=== PATIENT | female | born 2000 | race Caucasian/White ===

== ENCOUNTER 2018-08-29 18:15 | Emergency (ER) | payer SELFPAY ==
[~2018-08-29] VITALS: Wt 65.2 kg
[2018-08-29] MEDS ORDERED: IBUPROFEN 600 MG TAB PO ONE (19:00)
--- NOTE | 2018-08-29 20:23 | ERD ---
ER Documentation Chief Complaint Chief Complaint LEFT SHOULDER PAIN, POSSIBLE DISLOCATION HPI This is a 18-year-old female with no significant past medical history who is presenting with left shoulder pain while performing heavy lifting at work. The patient reportedly was trying to move a cart from side to side when she felt a popping sensation in her shoulder. The patient feels a bump to the shoulder and feels that it does not look the same as her right shoulder. The patient is able to range her shoulder, but it is difficult secondary to pain. She has no weakness or numbness or tingling to the left arm otherwise. Her arm is not cold or pale or cyanotic. Her pulses are intact. The patient denies feeling sick recently. The patient denies fever or chills. The patient has had no headache or vision changes. The patient does not endorse neck or back pain. The patient denies lightheadedness or dizziness. The patient has had no chest pain or trouble breathing. The patient denies nausea or vomiting. The patient denies abdominal pain. The patient denies changes to bowel movements or urination. The patient has had no focal deficits. The patient has had no weakness or numbness or tingling to the face or extremities. ROS All systems reviewed and are negative except as per history of present illness. Allergies Allergies: Coded Allergies: No Known Allergy (Verified Allergy, Unknown, 09/29/07) PMhx/Soc Medical and Surgical Hx: pt denies Medical Hx, pt denies Surgical Hx Hx Alcohol Use: No Hx Substance Use: No Hx Tobacco Use: No Smoking Status: Never smoker FmHx Family History: No diabetes Physical Exam Vitals Vital Signs Date Temp Pulse Resp B/P (MAP) Pulse Ox O2 O2 Flow FiO2 Time Delivery Rate 08/29/18 98.2 94 17 135/90 100 18:20 (105) Physical Exam Const: No acute distress Head: Atraumatic Eyes: Normal Conjunctiva ENT: Normal External Ears, Nose and Mouth. Neck: No meningismus. Resp: No respiratory distress. Symmetric chest wall rise. Cardio: Regular rate. Normal radial pulses. No JVD. Abd: Non distended. Skin: No petechiae or rashes Back: No midline or flank tenderness Ext: No cyanosis, or edema. Limited active range of motion secondary to pain, but full passive range of motion without obvious evidence of dislocation. Neur: Awake and alert. No facial asymmetry. Cranial nerves grossly intact. No obvious focal deficits. Sensation and strength intact in the upper extremities bilaterally. Psych: Normal Mood and Affect Results 24 hrs Current Medications Medications Dose Sig/Raul Start Time Status Last (Trade) Ordered Route PRN Stop Time Admin Dose Reason Admin Ibuprofen 600 mg ONCE ONCE 08/29/18 DC 08/29/18 (Motrin) PO 19:00 18:57 08/29/18 19:01 Procedures/MDM MDM The patient's presentation warrants further investigation. Previous medical records, if available, were reviewed. IMAGING Imaging and Radiology interpretation reviewed. XR L Shoulder FINDINGS: Osseous structures: appear well mineralized and intact with no fracture or destructive process identified. Joint spaces: The glenohumeral joint appears unremarkable. The left AC joint appears unremarkable. Soft tissues: appear unremarkable. IMPRESSION: Unremarkable left shoulder. Electronically viewed and signed by Willis Perkins Physician on 08/29/2018 20:14 TREATMENT/DISPOSITION The patient presents with left shoulder pain. There is no evidence of fracture or dislocation. A soft tissue injury is certainly possible. The patient was offered a sling. I do suspect that her pain will be self-limited, but she may follow-up with her primary physician as needed. The patient was treated with ibuprofen in the emergency department. Upon reevaluation of the patient, symptoms have improved. No emergent diagnoses were identified. At this time, I feel that the patient stable for discharge. The patient was instructed to follow-up with a primary care physician in 1-3 days. The patient will be given strict precautions with which to return to the emergency department. Prescriptions: Ibuprofen Disclaimer: Inadvertent spelling and grammatical errors are likely due to EHR/dictation software use and do not reflect on the overall quality of patient care. Note that the electronic time recorded on this note does not necessarily reflect the actual time of the patient encounter. Departure Diagnosis: Primary Impression: Shoulder injury Encounter type: initial encounter Laterality: left Qualified Codes: S49.92XA - Unspecified injury of left shoulder and upper arm, initial encounter Condition: Stable Patient Instructions: Shoulder Pain (Uncertain Cause) Additional Instructions: Thank you for for coming to [facility] for your care today. Please ask your nurse or provider if you have questions about your care today and do not leave until all your questions have been answered. Please use any medications given as directed and follow-up with your doctor (or the doctor you were referred to) in the next 1-3 days. If you do not have a primary care doctor you may follow up at the [facility] or our [facility] clinic (listed below). You may also use motrin and tylenol as needed for fever and/or pain unless instructed otherwise by your provider or nurse. Indications for more urgent follow-up have been discussed, but you may return to the Emergency Department at ANY time for any worrisome or worsening symptoms. If you have abdominal pain, please know that no test or exam you received is perfect and you should follow up within 8 hours for continued pain. If you had any imaging studies today, such as an X-Ray or CT Scan, these studies will be reviewed later by a radiologist. You will be called if there are important findings that were not identified today, so make sure the contact information you provided at registration is correct. If you received any narcotic pain control medicine today, such as Vicodin, Morphine or Dilaudid, your coordination and judgment may be affected for a number of hours. Please do not drive or operate heavy machinery, and you may want someone to assist you at home. If you were given a prescription for narcotic medication, be aware that it is very addictive- use sparingly and only if necessary. PLEASE SEEK FURTHER EVALUATION AND MANAGEMENT AT YOUR DOCTORS OFFICE WITHIN THE NEXT 1-3 DAYS. IT IS YOUR RESPONSIBILITY TO MAKE AN APPOINTMENT FOR FOLOW-UP CARE. IF YOU HAVE A PRIMARY DOCTOR, PLEASE CALL THEIR OFFICE TO SCHEDULE AN APPOINTMENT FOR FOLLOW UP. IF YOU DO NOT HAVE A PRIMARY DOCTOR YOU CAN CALL OUR PHYSICIAN REFERRAL HOTLINE AT IF YOU CAN NOT AFFORD TO SEE A PHYSICIAN YOU CAN CHOSE FROM THE FOLLOWING [facility]: [facility] [address] [facility] [address] [facility] [address] [facility] [address] [facility] [address] [facility]. [facility]. [address] DEBORAH BLANTON MD Aug 29, 2018 20:23
[2018-08-29] MEDS ORDERED: IBUP-1542 PO (20:24)
[2018-08-29 21:25] VITALS: BP 114/76; PULSE 71; RESP 20
== END 2018-08-29 21:35 | disposition home or self-care (01) ==
LOC: FTE 18:15
DX: S49.92XA Unspecified injury of left shoulder and upper arm, initial encounter (principal); X50.1XXA Overexertion from prolonged static or awkward postures, initial encounter; Y92.9 Unspecified place or not applicable
CPT/HCPCS: 73030